=== PATIENT | female | born 1970 | race Caucasian/White ===

== ENCOUNTER → 2020-08-23 11:10 | Outpatient (BNVA) | payer OTHER, SELFPAY | PROVIDERS: PCP Nurse Practitioner Family; Visit Provider Specialist | DX: G43.709 Chronic migraine without aura, not intractable, without status migrainosus (principal); F07.81 Postconcussional syndrome | CPT/HCPCS: 99204 ==

== ENCOUNTER → 2020-09-13 12:02 | Outpatient (BNVA) | payer MEDICARE, MEDICAID, SELFPAY | PROVIDERS: PCP Nurse Practitioner Family; Visit Provider Surgery | DX: Z01.812 Encounter for preprocedural laboratory examination (principal); R19.4 Change in bowel habit | CPT/HCPCS: 87635 ==

== ENCOUNTER 2020-09-18 08:34 | Day surgery (SDC) | payer MEDICARE, MEDICAID, SELFPAY ==
[2020-09-14 14:41] VITALS: BMI 21.7
[2020-09-18 09:14] VITALS: BP 122/69; PULSE 71; RESP 18; TEMP 36.2; O2SAT 100
[2020-09-18] MEDS: sodium chloride 0.9% 1,000 ML 30 ML IV (09:17)
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
--- NOTE | 2020-09-18 11:06 | W.PM.OPSUD ---
Surgery/Procedure H&P Update DATE OF PROCEDURE: September 18, 2020 DATE H&P PERFORMED: 09/04/20 H&P UPDATE INFORMATION: I have reviewed H&P completed within last 30 days, I have examined patient prior to procedure and No changes to prior documentation PREOP DIAGNOSIS: screening colonoscopy PLANNED PROCEDURE: Operation Date: 09/18/20 10:00 Proposed Procedures p Colonoscopy 99633 r19.4(Not Applicable) - Miky Durant MD
[2020-09-18 11:49] VITALS: BP 108/73; PULSE 82; RESP 16; TEMP 36.9; O2SAT 99
[2020-09-18 12:02] VITALS: BP 112/68; PULSE 74; RESP 18; O2SAT 100
--- NOTE | 2020-09-18 16:13 | ANE.PACU2 ---
Inpatient post-anesthesia follow up: Airway intact: Yes Vital signs: Temperature 98.4 F Pulse Rate 74 Respiratory Rate 18 Blood Pressure 112/68 Pulse Oximetry 100 Oxygen Delivery Me thod Room Air Oxygen Flow Rate Fraction of Inspir ed Oxygen Hydration adequate: Yes Nausea and vomiting: No Pain level: 1 Mental status: Baseline
== END 2020-09-18 12:16 | disposition home or self-care (01) ==
PROVIDERS: PCP Nurse Practitioner Family; Visit Provider Surgery
PROC: 0DJD8ZZ Inspection of Lower Intestinal Tract, Via Natural or Artificial Opening Endoscopic (ICD-10-PCS; CPT 45378; principal; 2020-09-18 10:00)
DX: Z12.11 Encounter for screening for malignant neoplasm of colon (principal); Z80.0 Family history of malignant neoplasm of digestive organs; K63.89 Other specified diseases of intestine
CPT/HCPCS: 12345; 45378; J2704; J7030

== ENCOUNTER 2020-10-04 13:30 | Outpatient (CLI) | payer MEDICARE, MEDICAID, SELFPAY ==
--- NOTE | 2020-10-04 13:33 | MM_ITS ---
WS: [id number] BILATERAL DIGITAL SCREENING MAMMOGRAPHY WITH CAD CLINICAL INFORMATION: SCREENING HISTORY: Screening mammogram. No current complaints. COMPARISON: TECHNIQUE: Bilateral CC and MLO views. FINDINGS: The breasts are composed of heterogeneous fibroglandular density tissue, which can limit the detectio n of small underlying mass lesions. No suspicious mass, asymmetry, calcifications, or architectural d istortion. No evidence of malignancy. MM/[place] [id number] IMPRESSION: BI-RADS: 1-Negative FOLLOW UP: 1 Year Follow-up Recommend return to annual screening mammography.
== END 2020-10-04 13:31 | disposition home or self-care (01) ==
LOC: RADSHAW 13:32
PROVIDERS: PCP Nurse Practitioner Family; Visit Provider Nurse Practitioner Family
DX: Z12.31 Encounter for screening mammogram for malignant neoplasm of breast (principal)
CPT/HCPCS: 77067

== ENCOUNTER → 2020-11-29 10:24 | Outpatient (BNVA) | payer OTHER, SELFPAY | PROVIDERS: PCP Nurse Practitioner Family; Visit Provider Specialist | DX: S06.9X9S Unspecified intracranial injury with loss of consciousness of unspecified duration, sequela (principal); G43.711 Chronic migraine without aura, intractable, with status migrainosus; G47.19 Other hypersomnia; Z98.1 Arthrodesis status; Y93.9 Activity, unspecified | CPT/HCPCS: 99214 ==

== ENCOUNTER 2020-12-10 20:00 | Outpatient (CLI) | payer OTHER, SELFPAY | END 2020-12-10 20:01 | disposition home or self-care (01) | LOC: SLEEP 12-11 12:41 | PROVIDERS: PCP Nurse Practitioner Family; Visit Provider Specialist | DX: G47.10 Hypersomnia, unspecified (principal) | CPT/HCPCS: 95810 ==

== ENCOUNTER → 2021-02-21 10:31 | Outpatient (BNVA) | payer OTHER, SELFPAY | PROVIDERS: PCP Nurse Practitioner Family; Visit Provider Specialist | DX: G43.711 Chronic migraine without aura, intractable, with status migrainosus (principal); G47.419 Narcolepsy without cataplexy; S06.9X9S Unspecified intracranial injury with loss of consciousness of unspecified duration, sequela; Y93.9 Activity, unspecified; Z98.1 Arthrodesis status; Z87.891 Personal history of nicotine dependence | CPT/HCPCS: 99214 ==

== ENCOUNTER → 2021-05-13 12:09 | Outpatient (BNVA) | payer OTHER, SELFPAY | PROVIDERS: PCP Nurse Practitioner Family; Visit Provider Specialist | DX: G43.711 Chronic migraine without aura, intractable, with status migrainosus (principal); V89.2XXS Person injured in unspecified motor-vehicle accident, traffic, sequela | CPT/HCPCS: 99213; 99214 ==

== ENCOUNTER → 2021-06-26 09:57 | Outpatient (BNVA) | payer MEDICARE, MEDICAID, SELFPAY | PROVIDERS: PCP Nurse Practitioner Family; Visit Provider Obstetrics & Gynecology | DX: N94.10 Unspecified dyspareunia (principal); Z90.710 Acquired absence of both cervix and uterus | CPT/HCPCS: 76830 ==

== ENCOUNTER → 2021-07-08 10:40 | Outpatient (BNVA) | payer MEDICARE, MEDICAID, SELFPAY | PROVIDERS: PCP Nurse Practitioner Family; Visit Provider Obstetrics & Gynecology | DX: R30.0 Dysuria (principal); N39.0 Urinary tract infection, site not specified; R33.9 Retention of urine, unspecified; B37.3 Candidiasis of vulva and vagina; R10.2 Pelvic and perineal pain; G89.29 Other chronic pain | CPT/HCPCS: 81000; 87077; 87086; 87184 ==

== ENCOUNTER → 2021-09-06 08:34 | Outpatient (BNVA) | payer MEDICARE, MEDICAID, SELFPAY | PROVIDERS: PCP Nurse Practitioner Family; Visit Provider Obstetrics & Gynecology | DX: Z20.822 Contact with and (suspected) exposure to COVID-19 (principal) | CPT/HCPCS: 87635 ==

== ENCOUNTER 2021-09-11 09:50 | Day surgery (SDC) | payer MEDICARE, MEDICAID, SELFPAY ==
[2021-09-09 09:24] VITALS: BMI 20.5
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
[2021-09-11 10:12] VITALS: BP 104/60; PULSE 71; RESP 18; TEMP 37; O2SAT 97
[2021-09-11] MEDS: scopolamine 1.5 Patch 1 PATCH TRANSDERMA (10:19)
[2021-09-11] MEDS: sodium chloride 0.9% 1,000 ML 30 ML IV (10:42)
--- NOTE | 2021-09-11 10:48 | P.ANESUD_ITS ---
Pre-Anesthetic Update Pre-Anesthetic Assessment: Date of Surgery/Procedure: 09/11/21 Preop Chinyere gnosis: Pelvic pain Proposed Procedure: Operation Date: 09/11/21 11:35 Proposed Procedures p Laparoscopy 21368/r10.2/g89.29(Not Applicable) - Ron Randle MD Any changes to Pre-Anesthetic Assessment?: No Last Intake: Intake Last Liquid Date 09/10/21 Last Liquid Time 22:30 Last Solid Date 09/10/21 Last Solid Time 17:30 Vitals: Temperature 98.6 F 09/11/21 10:12 Temperature Source Temporal Artery S can 09/11/21 10:12 Pulse Rate 71 09/11/21 10:12 Respiratory Rate 18 09/11/21 10:12 Blood Pressure 104/60 09/11/21 10:12 Blood Pressure Henny n 74 09/11/21 10:12 Pulse Oximetry 97 09/11/21 10:12 Oxygen Delivery Me thod 09/11/21 10:12 Exam: Pre-Anes Outpt Exam: alert, oriented x 3, clear to auscultation bilaterally and regular rate & rhythm Cardiac Studies: No Data to Display
[2021-09-11 10:57] LABS: Basophils # 0.1 10^3/uL (0.0-0.1); Eosinophils % 0.5 %; Hemoglobin 13.7 g/dL (11.5-15.3); Lymphocytes # 2.2 10^3/uL (0.8-4.8); Lymphocytes % 35.5 %; Mean Corpuscular HGB Conc 31.9 g/dL (30.0-36.0); Mean Corpuscular Hemoglobin 29.2 pg (28.0-34.0); Mean Corpuscular Volume 91.7 fl (81-99); Monocytes # 0.6 10^3/uL (0.2-0.9); Monocytes % 8.9 %; Neutrophils # 3.33 10^3/uL (1.8-7.7); Neutrophils % 53.9 %; Nucleated Red Blood Cells % 0 %; Platelet Count 270 10^3/cmm (130-400); Red Blood Count 4.69 10^6/uL (4.1-5.3); Red Cell Distribution Width 13.2 % (12.1-15.1); White Blood Count 6.2 10^3/uL (4.0-10.0)
--- NOTE | 2021-09-11 10:58 | W.PM.OPSUD ---
Surgery/Procedure H&P Update DATE OF PROCEDURE: September 11, 2021 DATE H&P PERFORMED: 09/09/21 H&P UPDATE INFORMATION: I have reviewed H&P completed within last 30 days and No changes to prior documentation PREOP DIAGNOSIS: Pelvic pain PLANNED PROCEDURE: Operation Date: 09/11/21 11:35 Proposed Procedures p Laparoscopy 73986/r10.2/g89.29(Not Applicable) - Ron Randle MD
[2021-09-11 11:01] LABS: Add Urine Microscopic? YES; Bilirubin Urine 1+ (Negative); Blood Urine Neg (Negative); Glucose Urine UA Norm (Normal); Ketones Urine Negative (Negative); Leukocyte Esterase Urine 1+ (Negative); Nitrate Urine Negative (Negative); Protein Urine Neg (Negative); Specific Gravity, Urine 1.025 (1.005-1.030); Urine Appearance Clear (CLEAR); Urine Color Yellow (Yellow); Urobilinogen Urine Norm (Negative); pH Urine 5 (5-7)
[2021-09-11 11:33] LABS: Alanine Aminotransferase 8 U/L (0-33); Albumin Level 4.3 g/dL (3.5-5.2); Alkaline Phosphatase 74 IU/L (35-105); Blood Urea Nitrogen 16 mg/dL (6-20); Calcium 9.7 mg/dL (8.5-10.5); Carbon Dioxide 21 mmol/L (22-29); Chloride 107 mmol/L (98-107); Globulin 2.6 g/dL (1.3-4.6); Glomerular Filtration Rate 130.1 mL/min (90-130); Glucose 86 mg/dL (65-115); Osmolality Calculated 292 mOsm/kg (285-295); Sodium 141 mmol/L (136-145); Total Bilirubin 0.4 mg/dL (0.15-1.2); Total Protein 6.9 g/dL (6.6-8.7)
[2021-09-11 11:36] LABS: Anion Gap 17.4 (5-19); Aspartate Amino Transferase 17 U/L (0-32); Potassium 4.4 mmol/L (3.5-5.1)
[2021-09-11 11:41] LABS: Add Urine Culture? No; Bacteria Urine TRACE /hpf; Mucus Urine 2+ /hpf; RBC Urine RARE /hpf (0-2); Squamous Epithelial Cell Urine RARE /hpf (0-5); WBC Urine 0-4 /hpf (0-5)
--- NOTE | 2021-09-11 15:10 | P.OP_ITS ---
Operative Report Date of procedure: September 11, 2021 Pre-op diagnosis: Preop Diagnosis Pelvic pain Post-op diagnosis: Chronic pelvic pain. Omental abdominal adhesions. Right upper quadrant hernia. Procedure done: Diagnostic laparoscopy. Lysis of adhesions. Hernia repair. Specimens removed/disposition: none Surgeon: Ron Randle MD Estimated blood loss: 10 IV fluids: 700 Urine output: 50 Findings: Multiple abdominal adhesions. Small 1 cm hernia in the right upper quadrant Procedure: After informed consent, the patient was taken to the operating room where general anesthesia was administered. The patient was examined under anesthesia. She was placed in the dorsal lithotomy position and prepped and draped in st erile fashion. Pre-Procedure Time-Out verifying the correct patient identity, correct procedure verified with consent, correct site and side, correct patient position, availability of correct implants and any special equipment or requirements was performed and acknowledge by the OR team. A weighted speculum was placed in the vagina, and the anterior lip of cervix was grasped with the single toothed tenaculum. A uterine manipulator was advanced into the endocervical. Tenaculum was removed after uterine manipulator was secured. The speculum was removed from the vagina. An intraumbilical incision was made with a scalpel. While tenting up on the abdomen, a Verres needle with sleeve was admitted into the intra-abdominal cavity. A saline drop test was performed and noted to be within normal limits. Pneumoperitoneum was attained with 4 liters of carbon dioxide. The Verres needle was removed. A 5 mm trocar and sleeve were admitted into the abdomen and laparoscopic confirmation of location was achieved, A second incision was made 3 cm above the symphysis pubis, and a 5 mm trocar and sleeve were admitted into the abdomen under direct, laparoscopic visualization without complication. A third incision was made in the left lower quadrant and a 5 mm trocar was admitted under direct visualization without complications. A survey revealed the anterior abdominal wall with multiple omental adhesions. The omental adhesions were lysed using the Voyant device. In the right upper quadrant a small approximately 1 cm incisional hernia was noted. Intraoperative consultation with general surgery was requested. Dr. Robles came to the OR assess the small incisional hernia and recommended closure with [id number] suture. The pelvic survey shows blood hysterectomy findings. A 5 mm blunt probe was advanced through the second trocar sleeve, and light manipulation of bowels and omentum to assess the cul-de-sac with no significant pathology in the pelvis. Carbon dioxide was allowed to escape from the abdomen. The instruments were removed, and skin cover with a bandage. The instruments were removed from the vagina, and excellent hemostasis was noted. The patient tolerated the procedure well, and sponge, lap and needle count were correct times two. The patient taken to the recovery room in good condition.
[2021-09-11 15:20] VITALS: BP 133/96; PULSE 116; RESP 18; TEMP 37; O2SAT 100
[2021-09-11 15:25] VITALS: BP 132/57; PULSE 114; RESP 19; O2SAT 100
[2021-09-11 15:29] VITALS: BP 142/56; PULSE 110; RESP 17; TEMP 36.1; O2SAT 100
[2021-09-11 15:47] VITALS: BP 138/62; PULSE 100; RESP 18; TEMP 36.8; O2SAT 100
[2021-09-11] MEDS: HYDROcodone-acetaminophen 5-325 mg Tablet 1 TAB PO (16:00)
--- NOTE | 2021-09-11 20:38 | ANE.PACU2 ---
Inpatient post-anesthesia follow up: Airway intact: Yes Vital signs: Temperature 98.2 F Pulse Rate 100 Respiratory Rate 18 Blood Pressure 138/62 Pulse Oximetry 100 Oxygen Delivery Me thod Room Air Oxygen Flow Rate 6 Fraction of Inspir ed Oxygen Hydration adequate: No Nausea and vomiting: No Pain level: 1 Mental status: Baseline
== END 2021-09-11 16:30 | disposition home or self-care (01) ==
PROVIDERS: PCP Nurse Practitioner Family; Visit Provider Obstetrics & Gynecology
PROC: (CPT 49320; principal; 2021-09-11 11:25)
DX: R10.2 Pelvic and perineal pain (principal); G89.29 Other chronic pain; K66.0 Peritoneal adhesions (postprocedural) (postinfection); K43.2 Incisional hernia without obstruction or gangrene
CPT/HCPCS: 49654; 36415; 80053; 81001; 85025; 86850; 86900; J0690; J1100; J1200; J1885; J2250; J2405; J2704; J2710; J3010; J3490; J7030

== ENCOUNTER → 2021-12-17 08:46 | Outpatient (BNVA) | payer OTHER, MEDICARE, MEDICAID, SELFPAY | PROVIDERS: PCP Nurse Practitioner Family; Visit Provider Specialist | DX: M54.81 Occipital neuralgia (principal); G43.711 Chronic migraine without aura, intractable, with status migrainosus | CPT/HCPCS: 64405; 64450 ==

== ENCOUNTER 2022-01-09 10:08 | Outpatient (CLI) | payer MEDICARE, MEDICAID, SELFPAY ==
--- NOTE | 2022-01-09 10:16 | MM_ITS ---
WS: [id number] BILATERAL 3D TOMOSYNTHESIS DIGITAL SCREENING MAMMOGRAPHY WITH CAD CLINICAL INFORMATION: SCREENING HISTORY: Screening mammogram. No current complaints. COMPARISON: October 04, 2020 TECHNIQUE: Bilateral CC and MLO views. FINDINGS: Scattered fibroglandular densities bilaterally. Increasing 11 mm irregular density subareolar LEFT br east below the nipple line. Recommend LEFT diagnostic mammography and ultrasound in a further evaluat ion. RIGHT breast is unremarkable and unchanged. MM/[place] [id number] IMPRESSION: BI-RADS: 0-Incomplete: Need additional imaging evaluation FOLLOW UP: Need Additional Imaging Recommend LEFT diagnostic mammography and ultrasound in further evaluation.
== END 2022-01-09 10:09 | disposition home or self-care (01) ==
LOC: RAD 10:11
PROVIDERS: PCP Nurse Practitioner Family; Visit Provider Nurse Practitioner Family
DX: Z12.31 Encounter for screening mammogram for malignant neoplasm of breast (principal)
CPT/HCPCS: 77063; 77067

== ENCOUNTER → 2022-01-20 08:27 | Outpatient (BNVA) | payer OTHER, MEDICARE, MEDICAID, SELFPAY | PROVIDERS: PCP Nurse Practitioner Family; Visit Provider Specialist | DX: M54.81 Occipital neuralgia (principal); G43.711 Chronic migraine without aura, intractable, with status migrainosus; S06.9X9S Unspecified intracranial injury with loss of consciousness of unspecified duration, sequela; Y93.9 Activity, unspecified | CPT/HCPCS: 64405; 64450; J1030; J3490 ==

== ENCOUNTER 2022-02-03 14:13 | Outpatient (CLI) | payer MEDICARE, MEDICAID, SELFPAY ==
--- NOTE | 2022-02-03 14:18 | MM_ITS ---
WS: [id number] LEFT 3D TOMOSYNTHESIS DIGITAL MAMMOGRAPHY WITH CAD CLINICAL INFORMATION: IRREGULAR DENSITY COMPARISON: January 09, 2022 TECHNIQUE: 3 views of the left breast were obtained. FINDINGS: Scattered fibroglandular densities of the left breast. Again seen is the previously described subareo lar asymmetric LEFT breast density best seen on the cc view. Ultrasound is pending. ULTRASOUND BREAST LEFT TECHNIQUE: Ultrasound left breast focused area of concern. CLINICAL INFORMATION: IRREGULAR DENSITY FINDINGS: Ultrasound LEFT breast 3:00 subareolar. Dilated duct with no intraluminal mass or lesion at the 3:00 position. Additional adjacent ill-defined dense parenchymal tissue but no definite focal mass or lesi on. Findings are probably benign and recommend 6 month follow-up LEFT diagnostic mammography and ultr asound to confirm stability. MM/[place] [id number] IMPRESSION: BI-RADS: 3-Probably Benign FOLLOW UP: 6 Month Follow-up Recommend 6 month follow-up LEFT diagnostic mammography and ultrasound to confi rm stability.
== END 2022-02-03 14:14 | disposition home or self-care (01) ==
PROVIDERS: PCP Nurse Practitioner Family; Visit Provider Nurse Practitioner Family
DX: R92.2 Inconclusive mammogram (principal)
CPT/HCPCS: 76642; 77061

== ENCOUNTER → 2022-02-17 08:20 | Outpatient (BNVA) | payer OTHER, MEDICARE, MEDICAID, SELFPAY | PROVIDERS: PCP Nurse Practitioner Family; Visit Provider Specialist | DX: M54.81 Occipital neuralgia (principal); G43.711 Chronic migraine without aura, intractable, with status migrainosus; Z98.1 Arthrodesis status; Z87.820 Personal history of traumatic brain injury | CPT/HCPCS: 64405; 64450; 99212; J1030; J3490 ==

== ENCOUNTER → 2022-03-19 08:39 | Outpatient (BNVA) | payer OTHER, MEDICARE, MEDICAID, SELFPAY | PROVIDERS: PCP Nurse Practitioner Family; Visit Provider Specialist | DX: M54.81 Occipital neuralgia (principal); G47.19 Other hypersomnia; G43.711 Chronic migraine without aura, intractable, with status migrainosus | CPT/HCPCS: 64405; 64450 ==

== ENCOUNTER → 2022-04-21 09:38 | Outpatient (BNVA) | payer MEDICARE, MEDICAID, SELFPAY | PROVIDERS: PCP Nurse Practitioner Family; Visit Provider Specialist | DX: M54.81 Occipital neuralgia (principal); G47.19 Other hypersomnia | CPT/HCPCS: 64405; 64450; J1030; J3490 ==

== ENCOUNTER 2022-07-14 11:04 | Outpatient (CLI) | payer MEDICARE, MEDICAID, SELFPAY ==
--- NOTE | 2022-07-14 11:10 | MM_ITS ---
WS: [id number] LEFT 3D TOMOSYNTHESIS DIGITAL MAMMOGRAPHY WITH CAD CLINICAL INFORMATION: ABNORMAL MAMMO HISTORY: Six-month follow-up COMPARISON: February 03, 2022 TECHNIQUE: 3 views of the left breast were obtained. FINDINGS: Scattered fibroglandular densities of the left breast. Again seen is the previously described subare olar asymmetric LEFT breast density best seen on the MLO view today. This is less prominent today. Ul trasound described below. ULTRASOUND BREAST LEFT TECHNIQUE: Ultrasound left breast focused area of concern. CLINICAL INFORMATION: ABNORMAL MAMMO COMPARISON: February 03, 2022 FINDINGS: Previously described dilated ducts subareolar LEFT breast is stable to slightly smaller today. No cass dence of intraluminal mass or lesion. Adjacent ill-defined dense parenchymal soft tissue is unchanged in appearance. Stability is reassuring. Recommend additional six-month follow-up diagnostic mammography and ultrasound LEFT breast to ensure stability MM/[place] [id number] IMPRESSION: BI-RADS: 3-Probably Benign FOLLOW UP: 6 Month Follow-up
== END 2022-07-14 11:05 | disposition home or self-care (01) ==
LOC: RAD 11:04
PROVIDERS: PCP Nurse Practitioner Family; Visit Provider Nurse Practitioner Family
DX: R92.8 Other abnormal and inconclusive findings on diagnostic imaging of breast (principal)
CPT/HCPCS: 76642; 77061; G0279

== ENCOUNTER 2022-12-10 07:34 | Outpatient (RCR) | payer MEDICARE, MEDICAID, SELFPAY | END 2023-01-07 23:59 | disposition home or self-care (01) | LOC: SPT 07:34 | PROVIDERS: PCP Nurse Practitioner Family; Visit Provider Urology | DX: M62.89 Other specified disorders of muscle (principal); N94.10 Unspecified dyspareunia | CPT/HCPCS: 97161; 97530 ==

== ENCOUNTER 2023-01-08 06:00 | Outpatient (RCR) | payer MEDICARE, MEDICAID, SELFPAY | END 2023-01-30 23:59 | disposition home or self-care (01) | LOC: SPT 06:00 | PROVIDERS: PCP Nurse Practitioner Family; Visit Provider Urology | DX: M62.89 Other specified disorders of muscle (principal) | CPT/HCPCS: 97110 ==

== ENCOUNTER 2023-04-02 10:02 | Outpatient (CLI) | payer MEDICARE, MEDICAID, SELFPAY ==
--- NOTE | 2023-04-02 | US_ITS ---
WS: [id number] BILATERAL 3D TOMOSYNTHESIS DIGITAL DIAGNOSTIC MAMMOGRAPHY WITH CAD CLINICAL INFORMATION: 6MFU LT BR HISTORY: 6-month follow-up COMPARISON: 07/14/2022 and 02/03/2022 TECHNIQUE: Bilateral CC, MLO, and ML views. FINDINGS: Scattered fibroglandular densities of the left breast. Again seen is the previously described subareo lar asymmetric LEFT breast density best seen on the MLO view today. This is stable compared to previo us. Ultrasound is pending and will be described below ULTRASOUND BREAST LEFT TECHNIQUE: Ultrasound left breast focused area of concern. CLINICAL INFORMATION: 6MFU LT BR FINDINGS: Previously described dilated ducts subareolar LEFT breast similar in appearance to the prior studies compatible with ductal ectasia. No evidence of intraductal mass or lesion. Adjacent ill-defined dens e parenchymal tissue is unchanged. Stability of findings is reassuring since 02/03/2022 and recommend return to annual screening mammography IMPRESSION: US/US breast LT limited* [id number] BI-RADS: 2-Benign FOLLOW UP: 1 Year Follow-up Recommend return to annual screening mammography.
--- NOTE | 2023-04-02 10:09 | MM_ITS ---
WS: [id number] BILATERAL 3D TOMOSYNTHESIS DIGITAL DIAGNOSTIC MAMMOGRAPHY WITH CAD CLINICAL INFORMATION: 6MFU LT BR HISTORY: 6-month follow-up COMPARISON: 07/14/2022 and 02/03/2022 TECHNIQUE: Bilateral CC, MLO, and ML views. FINDINGS: Scattered fibroglandular densities of the left breast. Again seen is the previously described subareo lar asymmetric LEFT breast density best seen on the MLO view today. This is stable compared to previo us. Ultrasound is pending and will be described below ULTRASOUND BREAST LEFT TECHNIQUE: Ultrasound left breast focused area of concern. CLINICAL INFORMATION: 6MFU LT BR FINDINGS: Previously described dilated ducts subareolar LEFT breast similar in appearance to the prior studies compatible with ductal ectasia. No evidence of intraductal mass or lesion. Adjacent ill-defined dens e parenchymal tissue is unchanged. Stability of findings is reassuring since 02/03/2022 and recommend return to annual screening mammography IMPRESSION: MM/[place] [id number] BI-RADS: 2-Benign FOLLOW UP: 1 Year Follow-up Recommend return to annual screening mammography.
== END 2023-04-02 10:03 | disposition home or self-care (01) ==
PROVIDERS: PCP Nurse Practitioner Family; Visit Provider Nurse Practitioner Family
DX: R92.8 Other abnormal and inconclusive findings on diagnostic imaging of breast (principal)
CPT/HCPCS: 76642; 77062; G0279

== ENCOUNTER → 2023-10-29 11:03 | Outpatient (BNVA) | payer MEDICARE, MEDICAID, SELFPAY | PROVIDERS: PCP Nurse Practitioner Family; Visit Provider Nurse Practitioner | DX: J02.9 Acute pharyngitis, unspecified (principal) | CPT/HCPCS: 87880 ==

== ENCOUNTER 2024-04-05 11:15 | Outpatient (CLI) | payer MEDICARE, MEDICAID, SELFPAY ==
--- NOTE | 2024-04-05 11:20 | MM_ITS ---
WS: [id number] BILATERAL 3D TOMOSYNTHESIS DIGITAL SCREENING MAMMOGRAPHY WITH CAD CLINICAL INFORMATION: SCREENING HISTORY: Screening mammogram. No current complaints. COMPARISON: 2022 TECHNIQUE: Bilateral CC and MLO views. FINDINGS: Scattered fibroglandular densities bilaterally. No suspicious focal mass, asymmetry, calcifications, or architectural distortion. No evidence of malignancy. MM/[place] [id number] IMPRESSION: BI-RADS: 1-Negative FOLLOW UP: 1 Year Follow-up Recommend return to annual screening mammography.
== END 2024-04-05 11:16 | disposition home or self-care (01) ==
PROVIDERS: PCP Nurse Practitioner Family; Visit Provider Nurse Practitioner Family
DX: Z12.31 Encounter for screening mammogram for malignant neoplasm of breast (principal)
CPT/HCPCS: 77063; 77067

== ENCOUNTER 2024-04-28 09:54 | Emergency (ER) | payer MEDICARE, MEDICAID, SELFPAY ==
[2024-04-28 10:59] VITALS: BP 123/79; PULSE 70; RESP 16; TEMP 36.8; O2SAT 99; BMI 20.1
--- NOTE | 2024-04-28 11:12 | XRR_ITS ---
PROCEDURE INFORMATION: Exam: XR Left Elbow Exam date and time: 04/28/2024 12:39 PM Age: 54 years old Clinical indication: Injury or trauma; Fall; Work related; Blunt trauma (contusions or hematomas); Elbow; Left TECHNIQUE: Imaging protocol: Radiologic exam of the left elbow. Views: 3 or more views. COMPARISON: CR XR forearm LT 2V [id number] 04/28/2024 12:39 PM FINDINGS: Bones/joints: Small joint effusion. Bones and joint spaces within normal limits. Soft tissues: No significant pathology. XR/XR elbow LT min 3V* [id number] IMPRESSION: Small joint effusion without acute fracture visualized.
--- NOTE | 2024-04-28 11:12 | XRR_ITS ---
PROCEDURE INFORMATION: Exam: XR Left Shoulder Exam date and time: 04/28/2024 12:39 PM Age: 54 years old Clinical indication: Injury or trauma; Fall; Blunt trauma (contusions or hematomas); Shoulder; Left TECHNIQUE: Imaging protocol: Radiologic exam of the left shoulder. Views: 2 or more views. COMPARISON: CR XR elbow LT min 3V* [id number] 04/28/2024 12:39 PM FINDINGS: Bones/joints: Prior ACDF. Bones and joint spaces within normal limits. No acute fracture or dislocation. Soft tissues: No significant soft tissue pathology. XR/XR shoulder LT min 2V* [id number] IMPRESSION: No significant pathology.
--- NOTE | 2024-04-28 11:12 | XRR_ITS ---
PROCEDURE INFORMATION: Exam: XR Left Forearm Exam date and time: 04/28/2024 12:39 PM Age: 54 years old Clinical indication: Injury or trauma; Fall; Blunt trauma (contusions or hematomas); Arm, lower; Left TECHNIQUE: Imaging protocol: Radiologic exam of the left forearm. Views: 2 views. COMPARISON: CR XR elbow LT min 3V* [id number] 04/28/2024 12:39 PM FINDINGS: Bones/joints: Small elbow effusion. No acute fracture or dislocation. Bones and joint spaces within normal limits. Soft tissues: No significant pathology. XR/XR forearm LT 2V [id number] IMPRESSION: No acute bony pathology. Small elbow effusion.
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
[2024-04-28 13:45] VITALS: BP 126/68; PULSE 61; O2SAT 94
--- NOTE | 2024-04-28 17:38 | DCPLANNER ---
messaged ortho for er f/u
== END 2024-04-28 13:46 | disposition home or self-care (01) ==
PROVIDERS: Emergency Provider Nurse Practitioner Family; PCP Nurse Practitioner Family
DX: M25.422 Effusion, left elbow (principal); W01.0XXA Fall on same level from slipping, tripping and stumbling without subsequent striking against object, initial encounter; Y92.007 Garden or yard of unspecified non-institutional (private) residence as the place of occurrence of the external cause
CPT/HCPCS: 73030; 73080; 73090; 99284

== ENCOUNTER → 2024-05-06 08:19 | Outpatient (BNVA) | payer MEDICARE, MEDICAID, SELFPAY | PROVIDERS: PCP Nurse Practitioner Family; Visit Provider Physician Assistant | DX: G56.22 Lesion of ulnar nerve, left upper limb; G56.02 Carpal tunnel syndrome, left upper limb; M77.12 Lateral epicondylitis, left elbow; S59.902A Unspecified injury of left elbow, initial encounter; W19.XXXA Unspecified fall, initial encounter | CPT/HCPCS: 20600; 73080; 73110; 99203; J3301; J3490 ==